=== PATIENT | male | born 1950 ===

== ENCOUNTER 2018-07-19 14:57 | Inpatient (IN) | payer MEDICARE, BC ==
--- NOTE | 2018-07-19 16:01 | C.PDOC ---
History Of Present Illness 68-YEAR-OLD MALE, REFERRED BY DR ROBLEDO. WORSENING B/L LEG WEAKNESS X 1 MO, +DECREASED APPETITE X SEV WEEKS AND NEW ONSET PERSIST HICCUPS X 1 WEEK. PS WILL HAVE "SUDDEN WEAKNESS LIKE MY LEGS JUST DON'T WANT TO MOVE" WHILE WALKING WORSE AFTER PROLONGED WALKING. NOW W INCR FALLS LAST INJURY 5 DAYS AGO BUTTOCK AREA. PS FELL WHILE CROSSING STREET, UNABLE TO GET UP "MY LEGS WOULDNT WORK RIGHT". DENIES ARM WEAKNESS, DIZZY, ALBRECHT. PS WHEN TRIES TO TURN "IT'S LIKE MY LEG IS LEFT BEHIND AND DOESNT KNOW IT NEEDS TO TURN". HICCUPS CONSTANT. NO ABD PAIN, DISTENTION. NO MEDS TRIED. DEC APPETITE W ASSOC WT LOSS. "I BUY THE FOOD BUT I JUST DONT FEEL LIKE EATING IT". NO FEVER. EXAM NAD NONTOXIC HEENT NO NYSTAGMUS; ATRAUM ABD NEG LUNGS CTA B/L +ACTIVE HICCUPS NEURO NO GROSS FOCAL DEF GAIT WNL (SHORT DISTANCE) REMAINDER NEG Time Seen by Provider: 07/19/18 15:38 Chief Complaint (Nursing): Dizziness/Lightheaded History Per: Patient Past Medical History Reviewed: Historical Data, Nursing Documentation, Vital Signs Vital Signs: Last Vital Signs Temp 99.3 F 07/19/18 15:27 Pulse 89 07/19/18 15:27 Resp 20 07/19/18 15:27 BP 133/73 07/19/18 15:27 Pulse Ox 98 07/19/18 15:27 - Medical History PMH: HTN Family History: States: No Known Family Hx - Social History Hx Alcohol Use: No Hx Substance Use: No Review Of Systems Constitutional: Negative for: Fever Cardiovascular: Negative for: Chest Pain Respiratory: Negative for: Shortness of Breath Gastrointestinal: Negative for: Nausea, Vomiting Neurological: Positive for: Weakness (BL LEGS). Negative for: Numbness Physical Exam - Physical Exam Appears: Non-toxic, No Acute Distress Skin: Normal Color, Warm, Dry, No Rash Head: Atraumatic, Normacephalic Eye(s): bilateral: Other (NO NYSTAGMUS) Nose: Normal Oral Mucosa: Moist Lips: Normal Appearing Neck: Normal ROM Chest: Symmetrical Cardiovascular: Rhythm Regular, No Murmur Respiratory: No Accessory Muscle Use, Other ( B/L +ACTIVE HICCUPS) Gastrointestinal/Abdominal: Soft, No Tenderness Extremity: Normal ROM, No Deformity Neurological/Psych: Other (NO GROSS FOCAL DEFICIT) Gait: Steady (WNL SHORT DISTANCE) ED Course And Treatment - Laboratory Results Result Diagrams: 07/19/18 16:39 07/19/18 16:39 ECG: Interpreted By Me ECG Rhythm: Sinus Rhythm ECG Interpretation: Normal Rate From EC O2 Sat by Pulse Oximetry: 98 Pulse Ox Interpretation: Normal (RA) Progress - Re-Evaluation Re-evaluation Note: 07/19/18 16:[address] ROBLDEO ADMIT [facility] [place] D/W DR TURNER WILL ADMIT 07/19/18 17:31 - Data Reviewed Data Reviewed: Lab, Diagnostic imaging, EKG, Old records Disposition Counseled Patient/Family Regarding: Studies Performed, Diagnosis - Disposition Disposition: HOSPITALIZED Disposition Time: 17:02 Condition: SERIOUS - POA Present On Arrival: Falls Or Trauma - Clinical Impression Clinical Impression: NPH (normal pressure hydrocephalus), Difficulty walking, Decreased appetite - Scribe Statement The provider has reviewed the documentation as recorded by the Scribe (Vianney Hidalgo) Provider Attestation: All medical record entries made by the Scribe were at my direction and personally dictated by me. I have reviewed the chart and agree that the record accurately reflects my personal performance of the history, physical exam, medical decision making, and the department course for this patient. I have also personally directed, reviewed, and agree with the discharge instructions and disposition.
--- NOTE | 2018-07-19 16:28 | CT ---
Date of service: 07/19/2018 PROCEDURE: CT HEAD WITHOUT CONTRAST. HISTORY: DIFF WALKING COMPARISON: None available. TECHNIQUE: Axial computed tomography images were obtained through the head/brain without intravenous contrast. Radiation dose: Total exam DLP = 1011.17 mGy-cm. This CT exam was performed using one or more of the following dose reduction techniques: Automated exposure control, adjustment of the mA and/or kV according to patient size, and/or use of iterative reconstruction technique. FINDINGS: Streak artifact limits evaluation of the skull base. HEMORRHAGE: No intracranial hemorrhage. BRAIN: No mass effect or edema. Dense intracranial atherosclerotic calcifications. Scattered periventricular and subcortical white matter hypodensities, which are nonspecific, but often seen with chronic microvascular ischemic disease. Please note that MRI with diffusion imaging is more sensitive in the detection of acute ischemic event. VENTRICLES: Ventricular prominence appears out of proportion to sulcal size and may be seen in the setting of NPH; correlate clinically. CALVARIUM: Unremarkable. PARANASAL SINUSES: Unremarkable as visualized. No significant inflammatory changes. MASTOID AIR CELLS: Unremarkable as visualized. No inflammatory changes. OTHER FINDINGS: None. IMPRESSION: Ventricular prominence appears out of proportion to sulcal size and may be seen in the setting of NPH; correlate clinically. Generalized atrophy. Nonspecific white matter changes.
--- NOTE | 2018-07-19 16:43 | RAD ---
Date of service: 07/19/2018 HISTORY: SOB COMPARISON: 04/17/2015 TECHNIQUE: Chest PA and lateral FINDINGS: LUNGS: No active pulmonary disease. PLEURA: No significant pleural effusion identified. No pneumothorax apparent. CARDIOVASCULAR: There is presence of aortic atherosclerotic calcification on x-ray. Normal cardiac size. No pulmonary vascular congestion. OSSEOUS STRUCTURES: Thoracic spondylosis. VISUALIZED UPPER ABDOMEN: Normal. OTHER FINDINGS: None. IMPRESSION: No active disease.
[2018-07-19 16:47] LABS: BASO # 0.1 K/uL (0.0-0.2); BASO % 0.8 % (0.0-2.0); EOS % 0.6 % (0.0-4.0); HEMOGLOBIN 13.7 g/dL (12.0-18.0); LYMPH # 1.1 K/uL (1.0-4.3); LYMPH % 17.3 % (20.0-40.0); MEAN CELL VOLUME 83.7 fL (80.0-94.0); MEAN CORPUSCULAR HEMOGLOBIN 28.2 pg (27.0-31.0); MEAN CORPUSCULAR HGB CONC 33.7 g/dL (33.0-37.0); MEAN PLATELET VOLUME 9.5 fL (7.2-11.7); MONO # 0.8 K/uL (0.0-0.8); MONO % 12.9 % (0.0-10.0); NEUT # 4.4 K/uL (1.8-7.0); NEUT % 68.4 % (50.0-75.0); NRBC % 0.1 % (0.0-2.0); RBC 4.84 Mil/uL (4.40-5.90); RED CELL DISTRIBUTION WIDTH 14.1 % (11.5-14.5); WHITE BLOOD COUNT 6.4 K/uL (4.8-10.8)
[2018-07-19 16:57] LABS: BLOOD UREA NITROGEN 22 mg/dL (9-20); CALCIUM 9.7 mg/dl (8.6-10.4); GFR NON-AFRICAN AMERICAN > 60
[2018-07-19 16:59] LABS: ALBUMIN 4.2 g/dL (3.5-5.0); ALT/SGPT 54 U/L (21-72); AST/SGOT 56 U/L (17-59)
[2018-07-19] MEDS ORDERED: Glucagon Recombinant 1 mg Inj IM PRN ×2 (17:13→21:48)
[2018-07-19] MEDS ORDERED: Dextrose 50% SYRINGE Inj (50 ml) IV PRN ×2 (17:21→21:48)
[2018-07-19 18:28] LABS: SQUAMOUS EPITHIAL < 1 /hpf (0-5); URINE BACTERIA RARE (<OCC); URINE BILIRUBIN NEGATIVE (NEGATIVE); URINE BLOOD NEGATIVE (NEGATIVE); URINE CLARITY Hazy (Clear); URINE GLUCOSE (UA) NORMAL (Normal); URINE LEUKOCYTE ESTERASE NEG Leu/uL (Negative); URINE PROTEIN 2+ mg/dL (NEGATIVE); URINE UROBILINOGEN NORMAL mg/dL (0.2-1.0)
--- NOTE | 2018-07-19 18:28 | CP.PCM.HP ---
Addendum entered and electronically signed by Bambi Melendez DO 07/19/18 22:17: 9. Unintentional Weight Loss * CT Chest/Abdomen/Pelvis IV contrast rule out occult malignancy Original Note: <PhilKiahbrookeJose Francisco linn - Last Filed: 07/19/18 18:54> History of Present Illness - History of Present Illness History of Present Illness: CC: Falls/unsteady gait PMD: Howard Mata FULL CODE This patient is coming to the hospital after being evaluated by his PMD for recent falls, patient states he has been very unsteady on his feet for the past year. He used to frequently do zeinab chi which he can no longer do to gait disturbances. He states before going to his doctor he fell on his butt, and then slid and hit his head. He denies losing consciousness. Denies bladder/bowel incontinence or any other symptom. The patient also denies fevers/chills, headaches, chest pain, shortness of breath, abdominal pain, nausea/vomiting/diarrhea or lower extremity pain/swelling. PMhx: cataracts, HTN, DMII Meds: Glipizide 10mg, Levemir 68units, Lisinopril 10mg, Metformin 1000mg BID, Metoprolol 25mg BID, Starlix 120mg BID, Sitagliptin 100mg Allergies: Denies Surgical History: Cataracts, lithotripsy FamHx: Denies Social: former smoker, stopped 20 years ago, denies EtOH or illicit drug use; independent in all IADL and ADLs normally walks without walker without issue Present on Admission - Present on Admission Any Indicators Present on Admission: Yes History of DVT/PE: No History of Uncontrolled Diabetes: No Urinary Catheter: No Decubitus Ulcer Present: No Review of Systems - Review of Systems All systems: reviewed and no additional remarkable complaints except (as per HPI) Past Patient History - Past Social History Smoking Status: Never Smoked - CARDIAC Hx Hypertension: Yes - HEENT Hx HEENT Problems: Yes Hx Cataracts: Yes - ENDOCRINE/METABOLIC Hx Endocrine Disorders: Yes Hx Diabetes Mellitus Type 2: Yes - GASTROINTESTINAL Hx Gastrointestinal Disorders: Yes Hx Gastroesophageal Reflux: Yes - PSYCHIATRIC Hx Substance Use: No - SURGICAL HISTORY Hx Surgeries: No Meds Allergies/Adverse Reactions: Allergies Allergy/AdvReac Type Severity Reaction Status Date / Time No Known Allergies Allergy Verified 07/19/18 15:31 Physical Exam - Constitutional Appears: Well, Non-toxic - Head Exam Head Exam: ATRAUMATIC, NORMAL INSPECTION - Eye Exam Eye Exam: EOMI, Normal appearance, PERRL (patient has b/l cataracts ) Pupil Exam: PERRL - ENT Exam ENT Exam: Mucous Membranes Moist - Neck Exam Neck exam: Positive for: Full Rom. Negative for: Lymphadenopathy - Respiratory Exam Respiratory Exam: Clear to Auscultation Bilateral, NORMAL BREATHING PATTERN. absent: Rales, Rhonchi, Wheezes - Cardiovascular Exam Cardiovascular Exam: REGULAR RHYTHM, RRR, +S1, +S2. absent: Tachycardia, Clicks, Gallop, Rubs, Systolic Murmur - GI/Abdominal Exam GI & Abdominal Exam: Normal Bowel Sounds, Soft. absent: Tenderness - Extremities Exam Extremities exam: Positive for: full ROM. Negative for: calf tenderness - Back Exam Back exam: CVA tenderness (L), NORMAL INSPECTION - Neurological Exam Neurological exam: Alert, CN II-XII Intact, Motor Sensory Deficit (patient has an abnormal shuffling gait, and resting tremor, patient has intact sensation and muscle strength throughout, 2+ pulses throughout, and is able to follow complex commands and questioning. Fund of knowledge is intact. Patient does not appear altered but extremely unsteady on feet. cannot walk on heels. ), Oriented x3 - Psychiatric Exam Psychiatric exam: Normal Affect, Normal Mood - Skin Skin Exam: Warm Results - Vital Signs Recent Vital Signs: Last Vital Signs Temp 99.3 F 07/19/18 15:27 Pulse 89 07/19/18 15:27 Resp 20 07/19/18 15:27 BP 133/73 07/19/18 15:27 Pulse Ox 98 07/19/18 17:35 - Labs Result Diagrams: 07/19/18 16:39 07/19/18 16:39 Labs: Laboratory Results - last 24 hr 07/19/18 07/19/18 07/19/18 15:26 16:39 16:39 WBC 6.4 RBC 4.84 Hgb 13.7 Hct 40.6 MCV 83.7 MCH 28.2 MCHC 33.7 RDW 14.1 Plt Count 338 MPV 9.5 Neut % (Auto) 68.4 Lymph % (Auto) 17.3 L [place] % (Auto) 12.9 H Eos % (Auto) 0.6 Baso % (Auto) 0.8 Neut # (Auto) 4.4 Lymph # (Auto) 1.1 [place] # (Auto) 0.8 Eos # (Auto) 0.0 Baso # (Auto) 0.1 Sodium 135 Potassium 5.8 H Chloride 98 Carbon Dioxide 21 L Anion Gap 22 H BUN 22 H Creatinine 1.1 Est GFR ( Amer) > 60 Est GFR (Non-Af Amer) > 60 POC Glucose (mg/dL) 136 H Random Glucose 161 H Calcium 9.7 Total Bilirubin 1.1 AST 56 ALT 54 Alkaline Phosphatase 208 H Total Protein 8.3 Albumin 4.2 Globulin 4.0 H Albumin/Globulin Ratio 1.0 Assessment & Plan - Assessment and Plan (Free Text) Assessment: 68yo M admitted for possible NPH with fall Possible NPH -CT Scan shows enlarged ventricles which is suggestive of NPH; patient clinically appears off balance -f/u CT Chest/Abdomen/Pelvis w/ contrast; patient has had significant unintentional weight loss to r/o occult malignancy; former smoker -Neurology; Dr Metcalf; thank you for your help -Neurosurgery; Dr. Montes; thank you for your help -Shunt vs therapeutic LP -f/u RPR, B12, HIV, Lipid Panel -fall precautions w/ bedside commode -Neurocheck Q4H -Telemetry Hyperkalemia possible -f/u BMP; CMP was hemolyzed at 5.8 -Kayhexalate if still elevated Fall -f/u Hip x-rays -patient otherwise has no pain on physical exam DMII -c/w starlix and sitagliptin -RISS Low; adjust accordingly -f/u hemoglobin a1c HTN -c/w lisinopril 10mg and Metoprolol 25mg BID Prophylaxis -No HepSC for possible LP/Neurosurgical intervention -No GI prophylaxis indicated patient is eating -Heart Healthy Diet -FULL CODE Case discussed and seen with Dr. Al Cisneros PGY3 Decision To Admit - Pt Status Changed To: Hospital Disposition Of: Inpatient - Admit Certification Admit to Inpatient:: After my assessment, the patient will require hospitalization for at least two midnights. This is because of the severity of symptoms shown, intensity of services needed, and/or the medical risk in this patient being treated as an outpatient. - InPatient: Physician Admission Certification:: patient needs more than 2 midnights - . Bed Request Type: Telemetry Admitting Physician: Bambi Melendez <Bambi Melendez V - Last Filed: 07/19/18 22:17> Results - Vital Signs Recent Vital Signs: Last Vital Signs Temp 99.3 F 07/19/18 20:00 Pulse 103 H 07/19/18 21:18 Resp 21 07/19/18 20:00 BP 161/79 H 07/19/18 20:00 Pulse Ox 99 07/19/18 20:00 - Labs Result Diagrams: 07/19/18 16:39 07/19/18 16:39 Labs: Laboratory Results - last 24 hr 07/19/18 07/19/18 07/19/18 15:26 16:39 16:39 WBC 6.4 RBC 4.84 Hgb 13.7 Hct 40.6 MCV 83.7 MCH 28.2 MCHC 33.7 RDW 14.1 Plt Count 338 MPV 9.5 Neut % (Auto) 68.4 Lymph % (Auto) 17.3 L [place] % (Auto) 12.9 H Eos % (Auto) 0.6 Baso % (Auto) 0.8 Neut # (Auto) 4.4 Lymph # (Auto) 1.1 [place] # (Auto) 0.8 Eos # (Auto) 0.0 Baso # (Auto) 0.1 PT INR APTT Sodium 135 Potassium 5.8 H Chloride 98 Carbon Dioxide 21 L Anion Gap 22 H BUN 22 H Creatinine 1.1 Est GFR ( Amer) > 60 Est GFR (Non-Af Amer) > 60 POC Glucose (mg/dL) 136 H Random Glucose 161 H Calcium 9.7 Total Bilirubin 1.1 AST 56 ALT 54 Alkaline Phosphatase 208 H Total Protein 8.3 Albumin 4.2 Globulin 4.0 H Albumin/Globulin Ratio 1.0 Urine Color Urine Clarity Urine pH Ur Specific [place] Urine Protein Urine Glucose (UA) Urine Ketones Urine Blood Urine Nitrate Urine Bilirubin Urine Urobilinogen Ur Leukocyte Esterase Urine WBC (Auto) Urine RBC (Auto) Ur Squamous Epith Cells Urine Bacteria Hyaline Casts Blood Type Antibody Screen 07/19/18 07/19/18 07/19/18 18:19 18:55 19:18 WBC RBC Hgb Hct MCV MCH MCHC RDW Plt Count MPV Neut % (Auto) Lymph % (Auto) [place] % (Auto) Eos % (Auto) Baso % (Auto) Neut # (Auto) Lymph # (Auto) [place] # (Auto) Eos # (Auto) Baso # (Auto) PT INR APTT Sodium Potassium Chloride Carbon Dioxide Anion Gap BUN Creatinine Est GFR ( Amer) Est GFR (Non-Af Amer) POC Glucose (mg/dL) 146 H Random Glucose Calcium Total Bilirubin AST ALT Alkaline Phosphatase Total Protein Albumin Globulin Albumin/Globulin Ratio Urine Color Yellow Urine Clarity Hazy Urine pH 5.0 Ur Specific [place] 1.029 Urine Protein 2+ H Urine Glucose (UA) Normal Urine Ketones Negative Urine Blood Negative Urine Nitrate Negative Urine Bilirubin Negative Urine Urobilinogen Normal Ur Leukocyte Esterase Neg Urine WBC (Auto) 1 Urine RBC (Auto) 2 Ur Squamous Epith Cells < 1 Urine Bacteria Rare Hyaline Casts 11-20 H Blood Type A POSITIVE Antibody Screen Negative 07/19/18 07/19/18 19:27 21:15 WBC RBC Hgb Hct MCV MCH MCHC RDW Plt Count MPV Neut % (Auto) Lymph % (Auto) [place] % (Auto) Eos % (Auto) Baso % (Auto) Neut # (Auto) Lymph # (Auto) [place] # (Auto) Eos # (Auto) Baso # (Auto) PT 13.3 H INR 1.2 APTT 35 H Sodium Potassium Chloride Carbon Dioxide Anion Gap BUN Creatinine Est GFR ( Amer) Est GFR (Non-Af Amer) POC Glucose (mg/dL) 283 H Random Glucose Calcium Total Bilirubin AST ALT Alkaline Phosphatase Total Protein Albumin Globulin Albumin/Globulin Ratio Urine Color Urine Clarity Urine pH Ur Specific [place] Urine Protein Urine Glucose (UA) Urine Ketones Urine Blood Urine Nitrate Urine Bilirubin Urine Urobilinogen Ur Leukocyte Esterase Urine WBC (Auto) Urine RBC (Auto) Ur Squamous Epith Cells Urine Bacteria Hyaline Casts Blood Type Antibody Screen Attending/Attestation - Attestation I have personally seen and examined this patient.: Yes I have fully participated in the care of the patient.: Yes I have reviewed all pertinent clinical information: Yes Notes (Text): Patient seen, examined, and case discussed with medical office rep. Patient reporting gait disturbance for the past year, noted for the past 2-3 weeks for falls. Last fall, last Wednesday, when he landed backwards on his butt and back of head but did not lose consciousness. Patient reports he changed his shoes to flat soles because the incline in shoes made it difficult for him to to walk. Patient reports normally he has good balance, but has been reliant on his zeinab-samira movements to outweigh his walking problems. Patient reports he does not normally need to use any walking device. Patient denies history of dementia, able to recall todays date, his full name, and reports he has a pretty good memory. 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 Aside from the recurrent falls, patient denies change sensation, denies numbness, denies tingling, denies saddle anesthesia, denies foot drop, denies other neurological deficits. Patient reports history of cataracts which he has undergone cataract surgery, and is being monitored by his opthalmologist at [facility]. Patient reports he went to his PMD today following his fall on Wednesday, who prompted him to go to hospital. Patient had also noted for unintentional weight loss, has not had prior EGD/colonoscopy. Patient reports history of kidney stones, which he follows with Dr. Estephania Sanz. Patient reports he has diabetes; takes regiment by Dr. Mann, will need to confirm regiment with her office or pharmacy ([facility] on [address]) given dosage of Levemir 68 units seems quite high. Patient has seen Dr. Simpson in the past for cardiac clearance when he required lithrotypsy in the past; prior stress test in 2016 available in EMR which is normal. Admitting orders discussed with resident at time of admission. Discussed with patient that we will get the help of both neurology and neurosurgery for his case. Patient is , but allows information to be shared with his sister, niece, and he too has children but admits they are not involved in his care. Patient is full code. Assessment/Plan 1. Gait Disturbance Normal Pressure Hydrocephalus Assessment/Plan * Changed to telemetry * Neurology; Dr Metcalf optoelectronics engineer-->help appreciated * Neurosurgery: Dr. Desai optoelectronics engineer-->help appreciated * CT Head (07/19/18): ventricular prominence appears out of proporition to sulcal size and may be setting of NPH. Generalized atrophy. Nonspecific atrophy. * Ordered for Brain MRI w/o contrast * Neurochecks Q4H * f/u RPR, B12, HIV, Lipid Panel in AM * fall precautions w/ bedside commode 2. Hyperkalemia Assessment/Plan * Sample hemolyzed; will repeat to ensure potassium is normal 3. s/p Fall Assessment/Plan * fall precautions with bedside commode * on physical exam, there is no apparent ecchymoses over the scalp, hips, nor back. * We will order hip xray to rule out occult fracture; but there is no tenderness illicted on exam over the pelvis. 4. Diabetes type II Assessment/Plan * Hypoglycemic protocol * Accuchecks Q6H to start at midnight * Start Lantus 10 units subqHS * continue januvia and Starlix * Check hbga1c and lipid panel in AM 5. Hypertension Assessment/Plan * c/w lisinopril 10mg PO daily * c/w Metoprolol 12.5 mg PO daily * Monitor vital signs 6. History of Cataracts 7. History of Kidney Stones 8. Prophylaxis Assessment/Plan * No HepSC for possible LP/Neurosurgical intervention * No GI prophylaxis indicated patient is eating * Heart Healthy Diet * FULL CODE * Fall precautions * Seizure precautions * PT/OT eval
[2018-07-19 18:37] LABS: URINE COLOR YELLOW (YELLOW)
[2018-07-19 19:35] LABS: INR 1.2; PROTHROMBIN TIME 13.3 SECONDS (9.7-12.2)
[2018-07-19] MEDS ORDERED: Iohexol 300 100 ML IJ ONE (19:58)
[2018-07-19] MEDS: (Novolog) Insulin Aspart, Recombinant 100 u/ml 10 ml vial SC SCH (21:30)
[2018-07-19 22:25] LABS: BLOOD UREA NITROGEN 21 mg/dL (9-20); CALCIUM 9.9 mg/dl (8.6-10.4); GFR NON-AFRICAN AMERICAN > 60
[2018-07-19] MEDS: (Lantus) Insulin Glargine, Recombinant SC SCH (22:28)
--- NOTE | 2018-07-20 07:34 | CP.PCM.CON ---
History of Present Illness - History of Present Illness History of Present Illness: Neurology Consult Note CC: unsteady gait, frequent falls HPI: This is a 68 year old male with PMHx of Hypertension, Uncontrolled T2DM, history of cataracts and history of nephrolithiasis who was admitted for unsteady gait. Patient reported he started noticing a change in gait starting 4- 5 months ago. He reports prior to that he had no issues walking. He started to notice that his legs would have a delay in movement. An example he provided was if he wanted to make a turn on a corner, his torso would move but there would be a delay in his lower half doing so. He would have to repeat the motion and inst ruct his lower extremities to move in that direction. He has followed up with his PMD about this issue where he was accessed for PVD, studies were unremarkable. Patient reports he was walking home 4 days prior to admission, when he felt his legs would not move, he fell back on his buttocks, and hit the back of his head. A local helped him to his feet and sat him on some nearby steps of a house. He was able to walk home with assistance, holding onto a woman. He reported he spent the weekend home, walking around with a cane, did not report any buckling, weakness, or falls. He followed up with his PMD on day of admission, and was instructed to come to the ED. ROS: Admitted to feeling heaviness of lower extremities. Denied any confusion, changes in memory, changes in vision or hearing, wobbly gait, buckling, urinary or bowel incontinence. PMHx: As noted above PSHx: Cataracts, lithotripsy All: NKDA SHx: former smoker, stopped 20 years ago, denies EtOH or illicit drug use; lives alone, independent in all IADL and ADLs normally walks without assistance, uses cane at home, FHx: Unremarkable PMD: [facility] Optho: Dr. Lange Urology: Dr. Marquez Sanz Cardio: Dr. Marita Simpson Pulm: Dr. Mata Past Patient History - Past Medical History & Family History Past Medical History?: Yes - Past Social History Smoking Status: Former Smoker - CARDIAC Hx Hypertension: Yes - PULMONARY Hx Respiratory Disorders: No - HEENT Hx HEENT Problems: Yes Hx Cataracts: Yes - ENDOCRINE/METABOLIC Hx Endocrine Disorders: Yes Hx Diabetes Mellitus Type 2: Yes - HEMATOLOGICAL/ONCOLOGICAL Hx Blood Disorders: No - INTEGUMENTARY Hx Dermatological Problems: No - MUSCULOSKELETAL/RHEUMATOLOGICAL Hx Musculoskeletal Disorders: No Hx Falls: Yes - GASTROINTESTINAL Hx Gastrointestinal Disorders: Yes Hx Gastroesophageal Reflux: Yes - GENITOURINARY/GYNECOLOGICAL Hx Genitourinary Disorders: No - PSYCHIATRIC Hx Substance Use: No - SURGICAL HISTORY Hx Surgeries: No - ANESTHESIA Hx Anesthesia: No Hx Anesthesia Reactions: No Meds Allergies/Adverse Reactions: Allergies Allergy/AdvReac Type Severity Reaction Status Date / Time No Known Allergies Allergy Verified 07/19/18 15:31 - Medications Medications: Current Medications Acetaminophen (Tylenol 325mg Tab) 650 mg PO Q6 PRN PRN Reason: Pain, Mild (1-3) Dextrose (Dextrose 50% Inj) 0 ml IV STAT PRN; Protocol PRN Reason: Hypoglycemia Protocol Dextrose (Glutose 15) 0 gm PO ONCE PRN; Protocol PRN Reason: Hypoglycemia Protocol Dextrose (Dextrose 50% Inj) 0 ml IV STAT PRN; Protocol PRN Reason: Hypoglycemia Protocol Dextrose (Glutose 15) 0 gm PO ONCE PRN; Protocol PRN Reason: Hypoglycemia Protocol Glucagon (Glucagen Diagnostic Kit) 0 mg IM STAT PRN; Protocol PRN Reason: Hypoglycemia Protocol Glucagon (Glucagen Diagnostic Kit) 0 mg IM STAT PRN; Protocol PRN Reason: Hypoglycemia Protocol Home Med (Home Med) 2 unit OU DAILY [facility] Dextrose (Dextrose 5% In Water 1000 Ml) 1,000 mls @ 0 mls/hr IV .Q0M PRN; Protocol PRN Reason: Hypoglycemia Protocol Dextrose (Dextrose 5% In Water 1000 Ml) 1,000 mls @ 0 mls/hr IV .Q0M PRN; Protocol PRN Reason: Hypoglycemia Protocol Insulin Aspart (Novolog) 0 unit SC ACHS [facility]; Protocol Last Admin: 07/19/18 21:30 Dose: Not Given Insulin Glargine (Lantus) 10 unit SC HS [facility] Last Admin: 07/19/18 22:28 Dose: 10 units Lisinopril (Zestril) 10 mg PO DAILY [facility] Metoprolol Tartrate (Lopressor) 12.5 mg PO DAILY [facility] Nateglinide (Starlix) 120 mg PO BIDAC [facility] Last Admin: 07/19/18 19:05 Dose: 120 mg Ondansetron HCl (Zofran Inj) 4 mg IVP Q6 PRN PRN Reason: Nausea/Vomiting Sitagliptin Phosphate (Januvia) 100 mg PO DAILY [facility] Physical Exam - Constitutional Appears: No Acute Distress - Head Exam Head Exam: NORMAL INSPECTION, NORMOCEPHALIC - Eye Exam Eye Exam: EOMI, Normal appearance, PERRL Pupil Exam: NORMAL ACCOMODATION - ENT Exam ENT Exam: Mucous Membranes Moist, Normal Exam - Respiratory Exam Respiratory Exam: Clear to Auscultation Bilateral, NORMAL BREATHING PATTERN - Cardiovascular Exam Cardiovascular Exam: REGULAR RHYTHM - GI/Abdominal Exam GI & Abdominal Exam: Normal Bowel Sounds, Soft - Extremities Exam Extremities exam: Positive for: normal inspection, pedal edema, pedal pulses present. Negative for: tenderness - Back Exam Back exam: NORMAL INSPECTION - Neurological Exam Neurological exam: Alert, CN II-XII Intact, Oriented x3, Reflexes Normal - Expanded Neurological Exam Expanded Patient oriented to: person, place, time Cerebellar Function: Finger to Nose: Normal, Heel to [place]: Normal Sensory exam: Lower Extremity 2 Point Discrimination: Normal, Lower Extremity Light Touch: Normal, Upper Extremity 2 Point Discrimination: Normal, Upper Ex tremity Light Touch: Normal Neuro motor strength exam: Left Upper Extremity: 5, Right Upper Extremity: 5, Left Lower Extremity: 5, Right Lower Extremity: 5 DTR: Bicep Left: 2+, Bicep Right: 2+, Patellar Left: 2+, Patellar Right: 2+ - Skin Skin Exam: Dry, Intact, Normal Color, Warm Results - Vital Signs Recent Vital Signs: Last Vital Signs Temp 98.2 F 07/20/18 04:00 Pulse 87 07/20/18 04:00 Resp 20 07/20/18 04:00 BP 150/80 07/20/18 04:00 Pulse Ox 97 07/20/18 04:00 - Labs Result Diagrams: 07/20/18 07:27 07/20/18 07:27 Labs: Laboratory Results - last 24 hr 07/19/18 07/19/18 07/19/18 15:26 16:39 16:39 WBC 6.4 RBC 4.84 Hgb 13.7 Hct 40.6 MCV 83.7 MCH 28.2 MCHC 33.7 RDW 14.1 Plt Count 338 MPV 9.5 Neut % (Auto) 68.4 Lymph % (Auto) 17.3 L Marin % (Auto) 12.9 H Eos % (Auto) 0.6 Baso % (Auto) 0.8 Neut # (Auto) 4.4 Lymph # (Auto) 1.1 Marin # (Auto) 0.8 Eos # (Auto) 0.0 Baso # (Auto) 0.1 PT INR APTT Sodium 135 Potassium 5.8 H Chloride 98 Carbon Dioxide 21 L Anion Gap 22 H BUN 22 H Creatinine 1.1 Est GFR ( Amer) > 60 Est GFR (Non-Af Amer) > 60 POC Glucose (mg/dL) 136 H Random Glucose 161 H Calcium 9.7 Magnesium Total Bilirubin 1.1 AST 56 ALT 54 Alkaline Phosphatase 208 H Total Protein 8.3 Albumin 4.2 Globulin 4.0 H Albumin/Globulin Ratio 1.0 Urine Color Urine Clarity Urine pH Ur Specific Plain Urine Protein Urine Glucose (UA) Urine Ketones Urine Blood Urine Nitrate Urine Bilirubin Urine Urobilinogen Ur Leukocyte Esterase Urine WBC (Auto) Urine RBC (Auto) Ur Squamous Epith Cells Urine Bacteria Hyaline Casts Blood Type Antibody Screen 07/19/18 07/19/18 07/19/18 18:19 18:55 19:18 WBC RBC Hgb Hct MCV MCH MCHC RDW Plt Count MPV Neut % (Auto) Lymph % (Auto) Marin % (Auto) Eos % (Auto) Baso % (Auto) Neut # (Auto) Lymph # (Auto) Marin # (Auto) Eos # (Auto) Baso # (Auto) PT INR APTT Sodium 136 Potassium 4.9 Chloride 98 Carbon Dioxide 22 Anion Gap 21 H BUN 21 H Creatinine 1.1 Est GFR ( Amer) > 60 Est GFR (Non-Af Amer) > 60 POC Glucose (mg/dL) 146 H Random Glucose 150 H Calcium 9.9 Magnesium 1.8 Total Bilirubin AST ALT Alkaline Phosphatase Total Protein Albumin Globulin Albumin/Globulin Ratio Urine Color Yellow Urine Clarity Hazy Urine pH 5.0 Ur Specific Plain 1.029 Urine Protein 2+ H Urine Glucose (UA) Normal Urine Ketones Negative Urine Blood Negative Urine Nitrate Negative Urine Bilirubin Negative Urine Urobilinogen Normal Ur Leukocyte Esterase Neg Urine WBC (Auto) 1 Urine RBC (Auto) 2 Ur Squamous Epith Cells < 1 Urine Bacteria Rare Hyaline Casts 11-20 H Blood Type Antibody Screen 07/19/18 07/19/18 07/19/18 19:18 19:27 21:15 WBC RBC Hgb Hct MCV MCH MCHC RDW Plt Count MPV Neut % (Auto) Lymph % (Auto) Marin % (Auto) Eos % (Auto) Baso % (Auto) Neut # (Auto) Lymph # (Auto) Marin # (Auto) Eos # (Auto) Baso # (Auto) PT 13.3 H INR 1.2 APTT 35 H Sodium Potassium Chloride Carbon Dioxide Anion Gap BUN Creatinine Est GFR ( Amer) Est GFR (Non-Af Amer) POC Glucose (mg/dL) 283 H Random Glucose Calcium Magnesium Total Bilirubin AST ALT Alkaline Phosphatase Total Protein Albumin Globulin Albumin/Globulin Ratio Urine Color Urine Clarity Urine pH Ur Specific Plain Urine Protein Urine Glucose (UA) Urine Ketones Urine Blood Urine Nitrate Urine Bilirubin Urine Urobilinogen Ur Leukocyte Esterase Urine WBC (Auto) Urine RBC (Auto) Ur Squamous Epith Cells Urine Bacteria Hyaline Casts Blood Type A POSITIVE Antibody Screen Negative 07/20/18 07/20/18 07/20/18 00:45 02:14 06:28 WBC RBC Hgb Hct MCV MCH MCHC RDW Plt Count MPV Neut % (Auto) Lymph % (Auto) Marin % (Auto) Eos % (Auto) Baso % (Auto) Neut # (Auto) Lymph # (Auto) Marin # (Auto) Eos # (Auto) Baso # (Auto) PT INR APTT Sodium Potassium Chloride Carbon Dioxide Anion Gap BUN Creatinine Est GFR ( Amer) Est GFR (Non-Af Amer) POC Glucose (mg/dL) 311 H 262 H 190 H Random Glucose Calcium Magnesium Total Bilirubin AST ALT Alkaline Phosphatase Total Protein Albumin Globulin Albumin/Globulin Ratio Urine Color Urine Clarity Urine pH Ur Specific Plain Urine Protein Urine Glucose (UA) Urine Ketones Urine Blood Urine Nitrate Urine Bilirubin Urine Urobilinogen Ur Leukocyte Esterase Urine WBC (Auto) Urine RBC (Auto) Ur Squamous Epith Cells Urine Bacteria Hyaline Casts Blood Type Antibody Screen Assessment & Plan - Assessment and Plan (Free Text) Plan: Unsteady Gait/ Frequent Falls Concern for Normal Pressure Hydrocephalus Imaging: - Head CT without contrast: Ventricular prominence appears out of proportion to sulcal size and may be seen in the setting of NPH; correlate clinically. Generalized atrophy. Nonspecific white matter changes. - Brain MRI without contrast: ordered, pending results - Cervical spinal canal MRI without contrast: ordered, pending results - Thoracic spinal canal MRI without contrast: ordered, pending results Management: - Neurosurgery consulted - pending reccs for possible shunt? - PT/ OT: Recommend home with home services with rolling walker - Vitamin B12- within normal limits All medical management of chronic issues as per Primary Team. Case discussed with Allie Vuong DO, PGY2
[2018-07-20 07:45] LABS: BASO % 0.7 % (0.0-2.0); EOS # 0.1 K/uL (0.0-0.7); EOS % 2.7 % (0.0-4.0); HEMOGLOBIN 12.7 g/dL (12.0-18.0); LYMPH # 1.2 K/uL (1.0-4.3); LYMPH % 24.4 % (20.0-40.0); MEAN CELL VOLUME 82.8 fL (80.0-94.0); MEAN CORPUSCULAR HEMOGLOBIN 28.6 pg (27.0-31.0); MEAN CORPUSCULAR HGB CONC 34.6 g/dL (33.0-37.0); MEAN PLATELET VOLUME 9.5 fL (7.2-11.7); MONO # 0.8 K/uL (0.0-0.8); MONO % 16.7 % (0.0-10.0); NEUT # 2.6 K/uL (1.8-7.0); NEUT % 55.5 % (50.0-75.0); RBC 4.43 Mil/uL (4.40-5.90); WHITE BLOOD COUNT 4.7 K/uL (4.8-10.8)
[2018-07-20 08:21] LABS: ALBUMIN 3.6 g/dL (3.5-5.0); ALT/SGPT 48 U/L (21-72); AST/SGOT 32 U/L (17-59); BLOOD UREA NITROGEN 17 mg/dL (9-20); CALCIUM 9.3 mg/dl (8.6-10.4); GFR NON-AFRICAN AMERICAN > 60; HDL CHOLESTEROL 24 mg/dL (30-70)
[2018-07-20] MEDS: (Novolog) Insulin Aspart, Recombinant 100 u/ml 10 ml vial SC SCH ×4 (08:24→21:42)
[2018-07-20 08:44] LABS: LDL CHOLESTEROL 89 mg/dL (0-129)
--- NOTE | 2018-07-20 09:15 | CP.PCM.PN ---
Subjective - Date & Time of Evaluation Date of Evaluation: 07/20/18 Time of Evaluation: 07:45 - Subjective Subjective: PGY-1 Medicine Progress Note for Dr. Melendez Patient was seen and examined today at bedside in no acute distress. Nurse reports no overnight events. Patient states he had some cramping pains in his legs bilaterally similar to how he feels when he's dehydrated. The cramping sensation disappeared after he drank two jugs of water and he urinated. Denies any other issues. Denies chest pain, shortness of breath, nausea, vomiting, constipation, diarrhea, abdominal pain. Objective - Vital Signs/Intake and Output Vital Signs (last 24 hours): Temp Pulse Resp BP Pulse Ox 98.0 F 90 20 161/94 H 95 07/20/18 07:00 07/20/18 07:41 07/20/18 07:00 07/20/18 07:00 07/20/18 07:00 Intake and Output: 07/20/18 07/20/18 06:59 18:59 Intake Total 120 Output Total 700 Balance -580 - Medications Medications: Current Medications Acetaminophen (Tylenol 325mg Tab) 650 mg PO Q6 PRN PRN Reason: Pain, Mild (1-3) Dextrose (Dextrose 50% Inj) 0 ml IV STAT PRN; Protocol PRN Reason: Hypoglycemia Protocol Dextrose (Glutose 15) 0 gm PO ONCE PRN; Protocol PRN Reason: Hypoglycemia Protocol Dextrose (Dextrose 50% Inj) 0 ml IV STAT PRN; Protocol PRN Reason: Hypoglycemia Protocol Dextrose (Glutose 15) 0 gm PO ONCE PRN; Protocol PRN Reason: Hypoglycemia Protocol Glucagon (Glucagen Diagnostic Kit) 0 mg IM STAT PRN; Protocol PRN Reason: Hypoglycemia Protocol Glucagon (Glucagen Diagnostic Kit) 0 mg IM STAT PRN; Protocol PRN Reason: Hypoglycemia Protocol Home Med (Home Med) 2 unit OU DAILY [facility] Dextrose (Dextrose 5% In Water 1000 Ml) 1,000 mls @ 0 mls/hr IV .Q0M PRN; Protocol PRN Reason: Hypoglycemia Protocol Dextrose (Dextrose 5% In Water 1000 Ml) 1,000 mls @ 0 mls/hr IV .Q0M PRN; Protocol PRN Reason: Hypoglycemia Protocol Insulin Aspart (Novolog) 0 unit SC ACHS [facility]; Protocol Last Admin: 07/20/18 08:24 Dose: 1 unit Insulin Glargine (Lantus) 10 unit SC HS [facility] Last Admin: 07/19/18 22:28 Dose: 10 units Lisinopril (Zestril) 10 mg PO DAILY [facility] Metoprolol Tartrate (Lopressor) 12.5 mg PO DAILY [facility] Nateglinide (Starlix) 120 mg PO BIDAC [facility] Last Admin: 07/20/18 08:24 Dose: 120 mg Ondansetron HCl (Zofran Inj) 4 mg IVP Q6 PRN PRN Reason: Nausea/Vomiting Sitagliptin Phosphate (Januvia) 100 mg PO DAILY [facility] - Labs Labs: 07/20/18 07:27 07/20/18 07:27 PT 13.3 SECONDS (9.7-12.2) H 07/19/18 19:27 INR 1.2 07/19/18 19:27 APTT 35 SECONDS (21-34) H 07/19/18 19:27 - Constitutional Appears: Well, Non-toxic, No Acute Distress - Head Exam Head Exam: ATRAUMATIC, NORMOCEPHALIC - Eye Exam Eye Exam: EOMI - ENT Exam ENT Exam: Mucous Membranes Moist - Respiratory Exam Respiratory Exam: Clear to Ausculation Bilateral, NORMAL BREATHING PATTERN. absent: Rales, Rhonchi, Wheezes - Cardiovascular Exam Cardiovascular Exam: REGULAR RHYTHM, +S1, +S2. absent: Gallop, Rubs, Murmur - GI/Abdominal Exam GI & Abdominal Exam: Soft, Normal Bowel Sounds. absent: Tenderness - Extremities Exam Additional comments: IV access in R AC peripheral pulses palpable bilaterally (radial, DP, PT) - Neurological Exam Neurological Exam: Alert, Awake, Oriented x3. absent: Normal Gait - Psychiatric Exam Psychiatric exam: Normal Affect, Normal Mood - Skin Skin Exam: Dry, Normal Color, Warm Assessment and Plan - Assessment and Plan (Free Text) Assessment: 68yo M admitted for possible NPH s/p multiple falls. Plan: Possible NPH - CT Head (07/19): enlarged ventricles which is suggestive of NPH; patient clinically appears off balance - CT C/A/P (07/19): pending read - f/u MRI brain/Cspine/Tspine/Lspine - Neurology consulted: Dr. Metcalf - help appreciated - Neurosurgery consulted: Dr. Montes - darvin appreciated - pending MRI for shunt vs. therapeutic LP - VitB12 332, HIV neg - Lipid panel (07/20): TG 124, chol 131, LDL 89, HDL 24 - f/u RPR - fall precautions w/ bedside commode - Neurocheck Q4H - Telemetry s/p Fall - f/u XR Hip - patient otherwise has no pain on physical exam Diabetes Mellitus type 2 - Hgb A1c 10.1 - home Starlix 120mg po BIDAC - home glipezide 10mg po BIDAC - home sitagliptin 100mg po daily - home Metformin 1000 bid held for IV contrast - not taking home Levemir 65u due to cost - Lantus 10u SC HS - ISS low - Accuchecks ACHS Hypertension - home lisinopril 10mg po daily - home metoprolol 25mg po daily - monitor vitals Hyperkalemia - possible - CMP was hemolyzed at 5.8 on admission - BMP (07/19) 4.9, K (07/20) 4.8 - No Kayexalate at this time - Monitor with AM labs Prophylaxis - DVT: AC CI for possible LP/Neurosurgical intervention - GI: not indicated at this time - Diet: HHD d/w Dr. Al Porter PGY-1
[2018-07-20] MEDS ORDERED: Home Med 1 UNIT OU SCH (10:00)
--- NOTE | 2018-07-20 12:01 | CT ---
Date of service: 07/19/2018 CT chest, abdomen, and pelvis with IV contrast Indication: unintentional weight loss Technique: Contiguous axial images of the chest, abdomen, and pelvis. Coronal and Sagittal reformats generated and reviewed. This CT exam was performed using 1 or more of the following dose reduction techniques: Automated exposure control, adjustment of the MAA and/or kV according to patient size, and/or use of iterative reconstruction technique. Contrast: 100 mL Omnipaque 300 IV Radiation dose: Total exam DLP = 547.01 MGy-cm. Comparison: Chest x-ray performed 07/19/18 Findings: Visualized portions of the inferior thyroid gland appear unremarkable. The mediastinal and hilar vascular structures appear within normal limits. The heart appears within normal limits of size. Dense coronary artery calcifications. Dense atherosclerotic calcifications of the aorta and mural plaque present. No focal consolidation. No pleural effusion. No pneumothorax. 4 mm lingula nodule (series 3, image 53). 6 mm right pericardial lymph node (series 3, image 91), nonspecific. Hypoattenuation of the liver compatible with hepatic steatosis. Punctate nonobstructing left renal calculus measures approximately 3 mm. No hydronephrosis or obstructing calculus identified. The kidneys enhance symmetrically. The gallbladder is decompressed otherwise unremarkable. The pancreas, spleen, and adrenal glands appear unremarkable. 11 mm gastro-hepatic lymph node, nonspecific. Numerous additional prominent nonspecific mesenteric lymph nodes. Ramakrishna hepatis node measures approximately 11 mm in short axis (series 6, image 43). The stomach is nondistended. The bowel loops appear within normal limits of caliber without evidence of intestinal obstruction. The appendix appears within normal limits of caliber. No secondary signs of acute appendicitis. There is no definite free air. Fat fluid and vessels within a right inguinal hernia. Fat and vessels evident within the left inguinal hernia. The urinary bladder approaches the left inguinal hernia mouth. Atherosclerotic calcifications/mural plaque of the aorta present. The prostate gland measures approximately 3.5 x 4.0 cm. The urinary bladder appears unremarkable. Multilevel degenerative changes of the spine most severe at L2-L3. Impression: 4 mm lingula nodular opacity. According to 2017 Fleischner criteria, the patient is low risk, no routine follow-up is recommended. If the patient is high risk, and optional CT at 12 months is recommended. Nonspecific adenopathy. For example: 6 mm right pericardial lymph node. 11 mm gastro-hepatic lymph node. Numerous additional prominent nonspecific mesenteric lymph nodes. Ramakrishna hepatis node measures approximately 11 mm in short axis. Hypoattenuation of the liver compatible with hepatic steatosis. Punctate nonobstructing left renal calculus measures approximately 3 mm. Fat fluid and vessels within a right inguinal hernia. Fat and vessels evident within the left inguinal hernia. The urinary bladder approaches the left inguinal hernia mouth. Additional findings as above. Preliminary impression was provided by [facility].
--- NOTE | 2018-07-20 18:35 | MRI ---
Date of service: 07/20/2018 PROCEDURE: MRI BRAIN WITHOUT CONTRAST HISTORY: NPH COMPARISON: Comparison made with prior CT scan of the brain 07/19/2018. TECHNIQUE: Multiplanar, multisequence MR images of the brain were obtained without intravenous contrast enhancement. FINDINGS: HEMORRHAGE: No acute parenchymal, subarachnoid nor extra-axial hemorrhage. No evidence of hemosiderin deposition is identified on gradient echo weighted sequence. DWI: No evidence of an acute or early subacute infarction seen on diffusion imaging.. BRAIN PARENCHYMA: Mild-moderate diffuse/confluent chronic periventricular white matter ischemic changes seen extending peripherally into the deep and subcortical white matter of both cerebral hemispheres. There are multiple more discrete chronic appearing lacunar type infarcts scattered about the deep and subcortical white matter. Tiny chronic appearing infarct within the anterior mid ceferino. Redemonstrated is moderate central volume loss evidenced by disproportionate enlargement of the ventricles compared sulci. The possibility of chronic compensated non communicating obstructive hydrocephalus not excluded. Normal pressure hydrocephalus should only be considered if the clinical triad of dementia, ataxia and incontinence are present. VENTRICLES: Dilatation of the 3rd and lateral ventricles as described. Findings could be secondary to central volume loss however chronic compensated non communicating obstructive hydrocephalus or NPH not completely excluded as detailed above. CRANIUM: Unremarkable. ORBITS: Is redemonstrated are changes of bilateral cataract surgery. PARANASAL SINUSES/MASTOIDS: Clear VASCULAR SYSTEM: Visualized major vascular flow voids at skull base patent. The is OTHER FINDINGS: None. IMPRESSION: No acute intracranial hemorrhage or infarct. Mild-moderate diffuse/confluent chronic periventricular white matter ischemic changes seen extending peripherally into the deep and subcortical white matter of both cerebral hemispheres. There are multiple more discrete chronic appearing lacunar type infarcts scattered about the deep and subcortical white matter. Tiny chronic appearing infarct within the anterior mid ceferino. Redemonstrated is moderate central volume loss evidenced by disproportionate enlargement of the ventricles compared sulci. The possibility of chronic compensated non communicating obstructive hydrocephalus not excluded. Normal pressure hydrocephalus should only be considered if the clinical triad of dementia, ataxia and incontinence are present.
--- NOTE | 2018-07-20 18:47 | MRI ---
Date of service: 07/20/2018 PROCEDURE: MR LUMBAR SPINE WITHOUT CONTRAST HISTORY: Leg weakness COMPARISON: None available. TECHNIQUE: Multiecho multiplanar sequences were performed through the lumbar spine without the use of intravenous contrast. FINDINGS: No acute compression fractures nor retropulsed fragments.. Minimal chronic appearing anterior stature loss of the T12, L1 and to a lesser degree L2 segments.. There are minor fish-mouth endplate deformities also present on. Vertebral bodies otherwise exhibit normal stature. Vertebral bodies and facets normally aligned. The the T12-L1: Mild age related disc desiccation and posterior disc space narrowing. No disc herniation or significant disc bulge. Overall central bony canal and exit foramina appear adequate. Facet joints are slightly hypertrophic L1-2: Changes similar to the T12-L1 disc space are present. L2-3: Significant degenerative spondylosis includes disc desiccation, disc space narrowing with cortical endplate irregularity and type 2 discogenic sclerosis. There is small central and bilateral focal disc protrusion ridge complex with minimal inferior subligamentous extension of disc material over short distance dorsal to the superior corner of the L3 segment. Disc results in mild compression of the ventral surface of the thecal sac. Central canal appears adequate. Facet joints are mildly hypertrophic. Exit foramina are also adequate despite encroaching disc ridge complex.. L3-4: There is [id number] age related disc desiccation. Disc space height relatively maintained. Small bilateral lateral and proximal bilateral foraminal disc bulging changes are present.. Facet joints are hypertrophic inflated slightly buckled.. Overall central bony canal appears adequate despite some minimal flattening along the anterolateral borders of the thecal sac and minimal posterior displacement of the nearly exiting intrathecal L4 nerve roots.. The exit foramina appear adequate however. L4-5: Mild to moderate age related disc desiccation the. Disc space height relatively maintained. Small central and bilateral disc bulge extends slightly into the proximal inferior margins of both exit foramina more so on the right side. Facet joints are hypertrophic and flavum are also buckled. There is mild flattening of the ventral surface of the thecal sac the central canal is marginal to minimally narrowed. Lateral recesses appear slightly narrowed with mild posterior displacement of the nearly exiting intrathecal L5 nerve roots. Exit foramina are adequate bilaterally. L5-S1: There is disc desiccation. No significant disc space narrowing. Small central and bilateral disc ridge complex minimally indents the ventral surface of the thecal sac however the overall central bony canal is adequate. Facets are quite hypertrophic left greater than right. Ligamentum flavum are also buckled. The disc changes extend into the proximal inferior margins of both exit foramina more so on the left side with bilateral foraminal narrowing and minor compressive effects on the exiting L5 nerve roots left greater than right. OTHER FINDINGS: Conus terminates at approximately the mid L1 level. IMPRESSION: No acute fractures. Multilevel degenerative spondylosis most significantly affecting of the L2-L3 and L5-S1 levels as detailed above.
--- NOTE | 2018-07-20 18:55 | MRI ---
Date of service: 07/20/2018 PROCEDURE: MR CERVICAL SPINE WITHOUT CONTRAST HISTORY: Change in upper extremity motor COMPARISON: None available. TECHNIQUE: Multiecho multiplanar sequences were performed through the cervical spine without the use of intravenous contrast. FINDINGS: No acute compression fractures no retropulsed fragments. Vertebral bodies exhibit normal stature. Minimal posterior subluxation C3 over C4 however vertebral bodies and facets are otherwise normally aligned.. C2-C3: None there is disc desiccation however disc space height maintained. No disc herniation or significant disc bulge. Facet joints are mildly hypertrophic. Central canal and exit foramina adequate. C3-C4: Moderate to fairly significant disc space narrowing with cortical endplate irregularity and type 2 discogenic sclerosis. Slight uncovering of the posterior inferior surface of the disc due to aforementioned minimal posterior subluxation.. There is minimal broad-based disc ridge complex which results in some flattening of the ventral surface of the thecal sac more so on the left side however central canal appears adequate with no cord compression.. The changes are contiguous with overgrown uncovertebral joints left greater than right. Facets also hypertrophic. Left exit foramen is narrowed. Right exit foramen appears adequate C4-C5: There is mild disc desiccation however disc space height relatively maintained. No disc herniation however bulge ridge complex is present.. The facets are mildly hypertrophic. Central canal and exit foramina appear adequate. C5-C6: There is disc desiccation however disc space height maintained. Minimal broad-based disc ridge complex contiguous with slightly overgrown uncovertebral joints. Facets also slightly overgrown. Central canal and exit foramina adequate. C6-C7: Mild disc desiccation however disc space height maintained. Minimal broad-based bulge of the posterior annulus is also present. Facets are slightly overgrown. Central canal and exit foramina adequate. C7-T1: No disc herniation, spinal canal stenosis or neural foraminal narrowing. OTHER FINDINGS: Signal changes seen within the upper/mid cervical spinal cord on sagittal STIR and axial T2 sequences felt to be artifactual as these changes are not seen with any certainty on the sagittal T2 sequence.. Cervicomedullary junction unremarkable. IMPRESSION: No acute fractures. Minor multilevel degenerative spondylosis most notably affecting the C3-C4 level as detailed above. Signal changes within the upper/mid cervical spinal cord felt to be artifactual as detailed above.
--- NOTE | 2018-07-20 19:54 | CARD ---
APPROVED REPORT Date of service: 07/19/2018 EKG Measurement Heart [id number] <Conclusion> Normal sinus rhythm Left axis deviation Minimal voltage criteria for LVH, may be normal variant Abnormal ECG
[2018-07-20] MEDS: (Lantus) Insulin Glargine, Recombinant SC SCH (21:42)
[2018-07-21 07:57] LABS: BASO # 0.1 K/uL (0.0-0.2); BASO % 1.1 % (0.0-2.0); EOS # 0.1 K/uL (0.0-0.7); EOS % 2.6 % (0.0-4.0); HEMOGLOBIN 13.2 g/dL (12.0-18.0); LYMPH % 22.7 % (20.0-40.0); MEAN CELL VOLUME 83.4 fL (80.0-94.0); MEAN CORPUSCULAR HGB CONC 34.7 g/dL (33.0-37.0); MONO # 0.7 K/uL (0.0-0.8); MONO % 14.1 % (0.0-10.0); NEUT # 2.8 K/uL (1.8-7.0); NEUT % 59.5 % (50.0-75.0); RBC 4.55 Mil/uL (4.40-5.90); RED CELL DISTRIBUTION WIDTH 13.7 % (11.5-14.5); WHITE BLOOD COUNT 4.6 K/uL (4.8-10.8)
[2018-07-21] MEDS: (Novolog) Insulin Aspart, Recombinant 100 u/ml 10 ml vial SC SCH ×3 (08:19→17:02)
[2018-07-21 08:36] LABS: ALBUMIN 3.5 g/dL (3.5-5.0); ALT/SGPT 43 U/L (21-72); AST/SGOT 33 U/L (17-59); BLOOD UREA NITROGEN 22 mg/dL (9-20); CALCIUM 9.1 mg/dl (8.6-10.4); GFR NON-AFRICAN AMERICAN > 60
--- NOTE | 2018-07-21 10:30 | MRI ---
Date of service: 07/21/2018 PROCEDURE: MR THORACIC SPINE WITHOUT CONTRAST HISTORY: bilateral leg weakness COMPARISON: Chest abdomen pelvis CT with contrast 07/19/2018. TECHNIQUE: Multiecho multiplanar sequences were performed through the thoracic spine without the use of intravenous contrast. FINDINGS: ALIGNMENT: Normal thoracic curvature is appreciated. There is no definite acute fracture and there is no spondylolisthesis. VERTEBRA: There is minimal anterior wedging of the T12 vertebral body with no edema related, indicative of limited chronic anterior wedge fracture. At T2, there is lesion which is hyperintense predominantly, on T1 and T2 weighted sequences, which partially suppresses on STIR imaging. There is a similar but more mixed signal lesion at the T11 vertebral body which partially suppresses on STIR imaging as well. These are likely atypical benign hemangiomata. Follow-up whole-body bone scan followed by SPECT scan of the thoracic spine is advised to exclude aggressive lesions though these are not favored. PARASPINAL SOFT TISSUES: Unremarkable. CORD: The thoracic spinal cord is normal in course, caliber, contour and intrinsic signal clinically conus medullaris which appears to terminate just below L1 vertebral body level. DISCS: Advanced diffuse disc desiccation is appreciate with marked disc height loss identified at T9-10 disc. There is minimal circumferential disc bulging at T5-6 without stenosis. No disc herniation, spinal canal stenosis, or neuroforaminal narrowing. OTHER FINDINGS: None. IMPRESSION: 1. Widely capacious central canal throughout the thoracic spine with no disc herniation or stenosis throughout. The thoracic spinal cord appears normal in course caliber contour and intrinsic signal. Minimal circumferential disc bulge T5-6. 2. 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 Whole-body bone scan with thoracic SPECT scan can be utilized for to exclude potential aggressive lesions.
--- NOTE | 2018-07-21 13:26 | CP.PCM.PN ---
Subjective - Date & Time of Evaluation Date of Evaluation: 07/21/18 Time of Evaluation: 13:24 - Subjective Subjective: full consult dictated will arrange surgical intervention electivly will see in office in 10 days Objective - Vital Signs/Intake and Output Vital Signs (last 24 hours): Temp Pulse Resp BP Pulse Ox 98.2 F 105 H 20 128/70 96 07/21/18 07:20 07/21/18 07:20 07/21/18 07:20 07/21/18 10:15 07/21/18 07:20 Intake and Output: 07/21/18 07/21/18 06:59 18:59 Output Total 550 Balance -550 - Medications Medications: Current Medications Acetaminophen (Tylenol 325mg Tab) 650 mg PO Q6 PRN PRN Reason: Pain, Mild (1-3) Chlorpromazine (Thorazine) 25 mg PO TID [facility] Last Admin: 07/21/18 10:16 Dose: 25 mg Dextrose (Dextrose 50% Inj) 0 ml IV STAT PRN; Protocol PRN Reason: Hypoglycemia Protocol Dextrose (Glutose 15) 0 gm PO ONCE PRN; Protocol PRN Reason: Hypoglycemia Protocol Dextrose (Dextrose 50% Inj) 0 ml IV STAT PRN; Protocol PRN Reason: Hypoglycemia Protocol Dextrose (Glutose 15) 0 gm PO ONCE PRN; Protocol PRN Reason: Hypoglycemia Protocol Glipizide (Glucotrol) 10 mg PO BIDAC [facility] Last Admin: 07/21/18 08:20 Dose: 10 mg Glucagon (Glucagen Diagnostic Kit) 0 mg IM STAT PRN; Protocol PRN Reason: Hypoglycemia Protocol Glucagon (Glucagen Diagnostic Kit) 0 mg IM STAT PRN; Protocol PRN Reason: Hypoglycemia Protocol Home Med (Home Med) 2 unit OU DAILY [facility] Dextrose (Dextrose 5% In Water 1000 Ml) 1,000 mls @ 0 mls/hr IV .Q0M PRN; Protocol PRN Reason: Hypoglycemia Protocol Dextrose (Dextrose 5% In Water 1000 Ml) 1,000 mls @ 0 mls/hr IV .Q0M PRN; Pr otocol PRN Reason: Hypoglycemia Protocol Insulin Aspart (Novolog) 0 unit SC ACHS [facility]; Protocol Last Admin: 07/21/18 08:19 Dose: 4 unit Insulin Glargine (Lantus) 10 unit SC HS [facility] Last Admin: 07/20/18 21:42 Dose: 10 units Lisinopril (Zestril) 10 mg PO DAILY [facility] Last Admin: 07/21/18 10:14 Dose: 10 mg Metoprolol Tartrate (Lopressor) 25 mg PO DAILY [facility] Last Admin: 07/21/18 10:15 Dose: 25 mg Nateglinide (Starlix) 120 mg PO BIDAC [facility] Last Admin: 07/21/18 10:16 Dose: 120 mg Ondansetron HCl (Zofran Inj) 4 mg IVP Q6 PRN PRN Reason: Nausea/Vomiting Sitagliptin Phosphate (Januvia) 100 mg PO DAILY [facility] Last Admin: 07/21/18 10:15 Dose: 100 mg - Labs Labs: 07/21/18 07:39 07/21/18 07:39 PT 13.3 SECONDS (9.7-12.2) H 07/19/18 19:27 INR 1.2 07/19/18 19:27 APTT 35 SECONDS (21-34) H 07/19/18 19:27
[2018-07-21 15:34] VITALS: BP 121/78; PULSE 92; RESP 18; TEMP 97.8; O2SAT 99
--- NOTE | 2018-07-21 19:41 | CP.PCM.DIS ---
Provider - Provider Date of Admission: 07/19/18 17:02 Attending physician: Bambi Melendez DO Time Spent in preparation of Discharge (in minutes): 45 Diagnosis - Discharge Diagnosis (1) NPH (normal pressure hydrocephalus) Status: Acute (2) Difficulty walking Status: Acute Hospital Course - Lab Results Lab Results: Most Recent Lab Values WBC 4.6 K/uL (4.8-10.8) L 07/21/18 07:39 RBC 4.55 Mil/uL (4.40-5.90) 07/21/18 07:39 Hgb 13.2 g/dL (12.0-18.0) 07/21/18 07:39 Hct 38.0 % (35.0-51.0) 07/21/18 07:39 MCV 83.4 fL (80.0-94.0) 07/21/18 07:39 MCH 29.0 pg (27.0-31.0) 07/21/18 07:39 MCHC 34.7 g/dL (33.0-37.0) 07/21/18 07:39 RDW 13.7 % (11.5-14.5) 07/21/18 07:39 Plt Count 290 K/uL (130-400) 07/21/18 07:39 MPV 10.0 fL (7.2-11.7) 07/21/18 07:39 Neut % (Auto) 59.5 % (50.0-75.0) 07/21/18 07:39 Lymph % (Auto) 22.7 % (20.0-40.0) 07/21/18 07:39 [place] % (Auto) 14.1 % (0.0-10.0) H 07/21/18 07:39 Eos % (Auto) 2.6 % (0.0-4.0) 07/21/18 07:39 Baso % (Auto) 1.1 % (0.0-2.0) 07/21/18 07:39 Neut # (Auto) 2.8 K/uL (1.8-7.0) 07/21/18 07:39 Lymph # (Auto) 1.0 K/uL (1.0-4.3) 07/21/18 07:39 [place] # (Auto) 0.7 K/uL (0.0-0.8) 07/21/18 07:39 Eos # (Auto) 0.1 K/uL (0.0-0.7) 07/21/18 07:39 Baso # (Auto) 0.1 K/uL (0.0-0.2) 07/21/18 07:39 PT 13.3 SECONDS (9.7-12.2) H 07/19/18 19:27 INR 1.2 07/19/18 19:27 APTT 35 SECONDS (21-34) H 07/19/18 19:27 Sodium 133 mmol/L (132-148) 07/21/18 07:39 Potassium 5.0 mmol/L (3.6-5.2) 07/21/18 07:39 Chloride 99 mmol/L (98-107) 07/21/18 07:39 Carbon Dioxide 22 mmol/L (22-30) 07/21/18 07:39 Anion Gap 17 (10-20) 07/21/18 07:39 BUN 22 mg/dL (9-20) H 07/21/18 07:39 Creatinine 0.9 mg/dL (0.8-1.5) 07/21/18 07:39 Est GFR ( Amer) > 60 07/21/18 07:39 Est GFR (Non-Af Amer) > 60 07/21/18 07:39 POC Glucose (mg/dL) 438 mg/dL (65-110) H* 07/21/18 16:53 Random Glucose 355 mg/dL (75-110) H 07/21/18 07:39 Hemoglobin A1c 10.1 % (4.2-6.5) H 07/20/18 07:27 Calcium 9.1 mg/dl (8.6-10.4) 07/21/18 07:39 Magnesium 1.8 mg/dL (1.6-2.3) 07/19/18 19:18 Total Bilirubin 0.7 mg/dL (0.2-1.3) 07/21/18 07:39 AST 33 U/L (17-59) 07/21/18 07:39 ALT 43 U/L (21-72) 07/21/18 07:39 Alkaline Phosphatase 205 U/L (38-126) H 07/21/18 07:39 Total Protein 7.1 g/dL (6.3-8.3) 07/21/18 07:39 Albumin 3.5 g/dL (3.5-5.0) 07/21/18 07:39 Globulin 3.6 gm/dL (2.2-3.9) 07/21/18 07:39 Albumin/Globulin Ratio 1.0 (1.0-2.1) 07/21/18 07:39 Triglycerides 124 mg/dL (0-149) 07/20/18 07:27 Cholesterol 131 mg/dL (0-199) 07/20/18 07:27 LDL Cholesterol Direct 89 mg/dL (0-129) 07/20/18 07:27 HDL Cholesterol 24 mg/dL (30-70) L 07/20/18 07: Vitamin B12 332 pg/mL (239-931) 07/20/18 07:27 TSH 3rd Generation 2.24 mIU/L (0.46-4.68) 07/20/18 07:27 Urine Color Yellow (YELLOW) 07/19/18 18:19 Urine Clarity Hazy (Clear) 07/19/18 18: Urine pH 5.0 (5.0-8.0) 07/19/18 18:19 Ur Specific [place] 1.029 (1.003-1.030) 07/19/18 18:19 Urine Protein 2+ mg/dL (NEGATIVE) H 07/19/18 18:19 Urine Glucose (UA) Normal mg/dL (Normal) 07/19/18 18:19 Urine Ketones Negative mg/dL (NEGATIVE) 07/19/18 18:19 Urine Blood Negative (NEGATIVE) 07/19/18 18:19 Urine Nitrate Negative (NEGATIVE) 07/19/18 18:19 Urine Bilirubin Negative (NEGATIVE) 07/19/18 18:19 Urine Urobilinogen Normal mg/dL (0.2-1.0) 07/19/18 18:19 Ur Leukocyte Esterase Neg Chrissie/uL (Negative) 07/19/18 18:19 Urine WBC (Auto) 1 /hpf (0-5) 07/19/18 18:19 Urine RBC (Auto) 2 /hpf (0-3) 07/19/18 18:19 Ur Squamous Epith Cells < 1 /hpf (0-5) 07/19/18 18:19 Urine Bacteria Rare (<OCC) 11/06/18 18:19 Hyaline Casts 11-20 /lpf (0-2) H 07/19/18 18:19 RPR Nonreactive (NONREACTIVE) 07/20/18 07:27 HIV 1&2 Antibody Screen Negative (NEGATIVE) 07/20/18 07:27 Blood Type A POSITIVE 07/19/18 19:18 Antibody Screen Negative 07/19/18 19:18 - Hospital Course Hospital Course: HPI: This patient is coming to the hospital after being evaluated by his PMD for recent falls, patient states he has been very unsteady on his feet for the past year. He used to frequently do zeinab chi which he can no longer do to gait disturbances. He states before going to his doctor he fell on his butt, and then slid and hit his head. He denies losing consciousness. Denies bladder/bowel incontinence or any other symptom. The patient also denies fevers/chills, headaches, chest pain, shortness of breath, abdominal pain, nausea/vomiting/diarrhea or lower extremity pain/swelling. Hospital Course: Patient was admitted for unsteady gait, as well as multiple falls. He was sent to ED by PMD for these complaints. Patient reported that he began to notice a change in gait starting 4-5 months ago. He reported that prior to that he had no issues walking. Neurology was consulted, and patient receive a myriad of imaging including CT and MRI, detailed below. Initial imaging suggested possible NPH. However, while patient did have gait changes, he did not at any point admit to incontinence, or other urinary issues, and there did not appear to be any dementia or change in mental status. Neurosurgery, Dr. Montes, was consulted for possible surgical intervention. Dr. Desai saw the patient and reviewed the imaging, and felt that the clinical picture most likely did not reflect normal pressure hydrocephalus. Dr. Desai provided his opinion that patient was safe to be discharged home with plans to follow up in 10 days to discuss possible elective surgery. Additionally, there was a x-ray of the hip which was ordered, but never performed. Clinically, suspicion of hip fracture is low and patient is able to walk independently. However, suggest follow up clinically and/or with imaging. Imaging: CT Chest/Abd/Pelvis 07/19: SEE FULL REPORT FOR DETAILS. 4mm lingular opacity. Nonspecific adenopathy. Hypoattenuation of the liver compatible with hepatic steatosis. Punctate nonobstructing left renal calculus approx [address] Head (07/19): enlarged ventricles which is suggestive of NPH; patient clinically appears off balance MRI Brain 07/20: SEE FULL REPORT FOR DETAILS. No acute intracranial hemorrahage or infarct. Mild-mod diffuse/confluet chronic periventriuclar white matter ischemic changes. Multiple more discrete chronic appearing lacunar type infarcts. Redemonstrated is moderate central volume loss evidenced by disproportionate enlargement of the ventricles compared sulci. the possibility of chronic compensate NPH should only be considered if the clinical triad of dementia, ataxia, and incontinence are present. See full report MRI C Spine 07/20: No acute fractures. Minor multilevel degenerative spondylosis most notably affecting the C3-C4 level as described. Aignal changes within the upper/mid cervical spinal cord felt to be artifactual as detailed. Thoracic Spine MRI 07/20: Widely capacious central canal throughout the T spine with no disc herniation or stenosis. The T spine cord appears normal in course caliber counter and intrinsic signal. Minimal circumferential disc bulge T5-6. Likely atypical benign hemangioma T2 and T11. Whole-body bone scan with SPECT can be utilized to exclude potential aggressive lesions. MRI Lumbar 07/20: No acute fractures. Multilevel degenerative spondylosis most significantly affecting the L2-L3 and L5-S1 levels Discharge Exam - Head Exam Head Exam: ATRAUMATIC, NORMOCEPHALIC - Eye Exam Eye Exam: EOMI, Normal appearance Pupil Exam: NORMAL ACCOMODATION - ENT Exam ENT Exam: Mucous Membranes Moist - Respiratory Exam Respiratory Exam: NORMAL BREATHING PATTERN, UNREMARKABLE. absent: Rhonchi, Wheezes - Cardiovascular Exam Cardiovascular Exam: REGULAR RHYTHM, +S1, +S2. absent: Systolic Murmur - GI/Abdominal Exam GI & Abdominal Exam: Normal Bowel Sounds, Soft. absent: Tenderness - Extremities Exam Extremities exam: normal inspection - Neurological Exam Neurological exam: Alert, CN II-XII Intact, Oriented x3 Additional comments: Gait: Patient with out-toed stance/gait. Patient walks slowly, but does not appear unsteady. Muscle strength and sensation fully intact. Negative Babinsky. - Psychiatric Exam Psychiatric exam: Normal Affect, Normal Mood - Skin Skin Exam: Dry, Intact, Normal Color, Warm Discharge Plan - Follow Up Plan Condition: SERIOUS Disposition: HOME/ ROUTINE Additional Instructions: Patient has been cleared for discharge per Dr. Melendez Patient is to continue taking the following medications. 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 Patient to follow with his Neurosurgeon, Dr. Montes, in 10 days. During your visit with Dr. Montes, he will discuss possible elective surgery. Please also make arrangements to follow up with a neurologist. Patient should follow up with his Primary doctor, Dr. Howard Barraza. Please attain a referral to follow up with GI. Patient should have a colonoscopy done as an outpatient. Please return to ED if symptoms recur or worsen.
--- NOTE | 2018-07-22 06:49 | CON ---
DATE: 07/21/2018 HISTORY OF PRESENT ILLNESS: A 68-year-old male with history of hypertension, diabetes, history of nephrolithiasis, admitted because he had fallen several days prior. He noted that he had a change in his gait, maybe 2 to 3 months ago. He said that prior to this, he had no problems walking and he used to walk long distances. He said more recently, he developed a problem that his legs felt heavy. He reports that he is still able to walk fairly lengthy distances flat, but the legs start to fatigue and feel heavy when he walks uphill. He denies any problems with his upper extremities. He denies any problem with urinary control. He reports that his mentation has not changed, his memory remains the same, and he is able to do his daily activities of life without difficulty. He was worked up with MRIs of the brain; cervical, lumbar, and thoracic spines. There is some mild degenerative disk disease in both the cervical and lumbar spines. The brain shows some ventriculomegaly with some periependymal edema. The examination today finds that he does appear to walk with a normal gait. There appears to be no tremors in his upper extremities either with motion or at rest. His cranial nerves appear fully intact. His motor strength is 5/5 in all muscle groups. He has no sensory deficits, , reflexes are all 2/4. ALLERGIES: HE HAS NO ALLERGIES. SOCIAL HISTORY: He stopped smoking 20 years ago. Denies using alcohol. Lives alone. ASSESSMENT: At this point, the provisional diagnosis is normal pressure hydrocephalus. However, based on my evaluation of him today, he does not really give a history that is consistent with gait change from normal pressure hydrocephalus. He states that he is able to walk on flat ground without a problem. He has fallen once, at which point he could not get up. He needed help to get up and he needed to sit for about half hour before his legs gained enough strength that he felt he could walk. This occurred once. Again, this is not consistent with the normal story associated with normal pressure hydrocephalus. I explained to him that at this point we could consider a CHILD & ADOLESCENT PSYCHIATRIST shunt; however, I would like to differ this for a week or so to see what progresses in terms of his examination or his complaints. I told him to see me in the office in 10 days, and if we decide that he needs a shunt, we will place it electively. Regardless of this decision, we could not possibly get him to the operating room before Wednesday of next week, and it does not seem reasonable to keep him in the hospital for that period of time. I suggest that he use a cane over the next 10 days. I believe that he could be discharged to home today, and I will follow in the office. Tony Montes MD
--- NOTE | 2018-07-22 13:36 | CP.PCM.PN ---
Subjective - Date & Time of Evaluation Date of Evaluation: 07/22/18 Time of Evaluation: 13:34 - Subjective Subjective: For case management to provide accommodations for home PT and a three point cane: Please provide machine egg washer services for management of gait impairment and physical therapy for HEP for history of falls. Please also provide patient with a three point cane for daily use. Thank you kindly for your help. Objective - Vital Signs/Intake and Output Vital Signs (last 24 hours): Temp Pulse Resp BP Pulse Ox 97.8 F 92 H 18 121/78 99 07/21/18 15:29 07/21/18 15:29 07/21/18 15:29 07/21/18 15:29 07/21/18 15:29 - Labs Labs: 07/21/18 07:39 07/21/18 07:39 PT 13.3 SECONDS (9.7-12.2) H 07/19/18 19:27 INR 1.2 07/19/18 19:27 APTT 35 SECONDS (21-34) H 07/19/18 19:27 Assessment and Plan (1) NPH (normal pressure hydrocephalus) Status: Acute (2) Difficulty walking Status: Acute
== END 2018-07-21 22:15 | disposition home or self-care (01) | DRG 56 ==
LOC: C.ER 14:57 → C.3T 17:02 → C.9E 17:20 → C.6T 19:35
PROVIDERS: ADMIT Hospitalist; ATTEND Hospitalist
DX: G91.2 (Idiopathic) normal pressure hydrocephalus (principal); G93.6 Cerebral edema; I10 Essential (primary) hypertension; K21.9 Gastro-esophageal reflux disease without esophagitis; R29.6 Repeated falls; Z79.4 Long term (current) use of insulin; E87.5 Hyperkalemia; R63.4 Abnormal weight loss; E11.65 Type 2 diabetes mellitus with hyperglycemia; M50.30 Other cervical disc degeneration, unspecified cervical region; M51.36 Other intervertebral disc degeneration, lumbar region; N20.0 Calculus of kidney; M47.9 Spondylosis, unspecified